=== PATIENT | female | born 1965 | race Caucasian/White ===

== ENCOUNTER 2020-01-07 09:05 | Emergency (ER) | payer BC, SELFPAY ==
--- NOTE | ~2020-01-07 | XR_ITS ---
EXAMINATION: XR elbow LT min 3V DATE: 01/07/2020 09:43 INDICATION: Left elbow swelling TECHNIQUE: Anteroposterior, two oblique and lateral views of the left elbow were obtained. COMPARISON: None. FINDINGS: Alignment is normal. No fracture or joint effusion. Joint spaces are normal. There is diffu se soft tissue swelling of the elbow. IMPRESSION: 1. Diffuse soft tissue swelling of the ankle without underlying osseous abnormality. Reviewed, dictated and finalized at location A. IMPRESSION: 1. Diffuse soft tissue swelling of the ankle without underlying osseous abnorma lity.
[2020-01-07 09:26] VITALS: BP 122/69; PULSE 70; RESP 16; TEMP 37.4; O2SAT 100
--- NOTE | 2020-01-07 09:26 | ED.GENADULT ---
HPI - General Adult General Chief complaint: Extremity Injury, Upper Stated complaint: Swollen right elbow Time Seen by Provider: 01/07/20 09:26 Source: patient Mode of arrival: ambulatory Limitations: no limitations History of Present Illness HPI narrative: 54-year-old female patient presents to the [facility] with complaints of left elbow pain since yesterday. Patient states that she was having some pain with movement yesterday and it was a little swollen but denies any injury to the left elbow. Patient states that she was putting ice on it yesterday however today it is very hot to the touch, swollen and it continues to have pain with movement. Patient states that she did have a colonoscopy on last week and had an IV in her left hand but her symptoms did not appear until yesterday. Denies any fevers, body aches or chills however she does present today with a low-grade fever. Related Data Home Medications Medication Instructions Recorded Confirmed albuterol sulfate INHALATION 01/07/20 carbamazepine mg PO 01/07/20 levothyroxine 01/07/20 mesalamine g PO 01/07/20 Allergies Allergy/AdvReac Type Severity Reaction Status Date / Time No Known Allergies Allergy Unverified 08/08/16 19:35 Review of Systems Review of Systems: Narrative: CONSTITUTIONAL: Denies fever, chills, or sweats. EYES: Denies visual changes, redness, or discharge. ENT: Denies rhinorrhea, congestion, sore throat, or otalgia. CARDIOVASCULAR: Denies chest pain, palpitations, or edema. RESPIRATORY: Denies cough or dyspnea. GASTROINTESTINAL: Denies abdominal pain, nausea, vomiting, or diarrhea. GENITOURINARY: Denies dysuria or hematuria. SKIN: Denies rash or itching. MUSCULOSKELETAL: Denies back pain, joint pain, or myalgia. Positive left elbow pain, redness and swelling since yesterday NEUROLOGIC: Denies headache, numbness, or weakness. PSYCHIATRIC: Denies anxiety or depression. PMFSH Comments At the time of my signature I agree with nursing past medical history, surgical, social, and family history. There is no relevant family history pertinent to the presenting complaint. Exam Narrative: Exam Narrative: GENERAL: Well-appearing, well-nourished, and in no acute distress. HEAD: Normocephalic, atraumatic. EYES: PERRLA and EOMI. ENT: Nares clear, no rhinorrhea or epistaxis. Mucous membranes moist. NECK: Supple. No lymphadenopathy CHEST: Clear to auscultation. No respiratory distress. HEART: Regular rate and rhythm. No murmur heard. Normal peripheral pulses. ABDOMEN: Soft, nontender, nondistended, normal active bowel sounds. EXTREMITIES: The L elbow is without obvious asymmetry or deformity when compared to the R elbow. No obvious surface trauma, ecchymosis. Patient does have significant soft tissue swelling noted to the left elbow that extends assisted down to the left forearm. No involvement of the hand or fingers. There is some erythema present and very hot to the touch. No bony tenderness to palpation of the lateral or medial epicondyle, olecranon, or radial head. No epicondylar or axillary lymphadenopathy. Normal flexion, extension but does have pain with this movement, normal supination, pronation. Normal muscle strength. Intact motor and sensation of ulnar, median, and radial nerves. SKIN: Warm, dry, no rash. NEURO: No focal deficits. Alert and oriented x3. Course Reevaluation(s) Reevaluation #1: Reevaluated patient after x-ray resulted. Discussed with her that her x-ray is negative for any septic joint. Discussed with her we will go ahead and put her on some antibiotics for the cellulitis infection and she can continue taking Tylenol and ibuprofen for pain. Discussed with her she can use heating pad to the area to help with the pain as well. Patient verbalized understanding. Discussed with patient that if she continues to have worsening symptoms such as worsening pain with movement that she would need to go the ER for further evaluation an
== END 2020-01-07 10:22 | disposition home or self-care (01) ==
PROVIDERS: Emergency Provider Nurse Practitioner Family; PCP Student in an Organized Health Care Education/Training Program
DX: L03.114 Cellulitis of left upper limb (principal); E03.9 Hypothyroidism, unspecified
CPT/HCPCS: 73080; 99213; G0463

== ENCOUNTER → 2020-03-20 13:45 | Outpatient (CLI) | payer BC, SELFPAY ==
--- NOTE | ~2020-03-20 | MM_ITS ---
EXAMINATION: MM screening bere BI w sushila HISTORY: Screening mammogram, family history of breast cancer in her mother. TECHNIQUE: Craniocaudal and mediolateral oblique 3-D tomosynthesis images were obtained and synthetic 2-D images were generated. CAD analysis was submitted and interpreted. COMPARISON: 02/01/2019, 01/13/2017, 12/19/2015 BREAST PARENCHYMAL COMPOSITION: The breasts are heterogeneously dense, which may obscure small masses . FINDINGS: There is no evidence of suspicious mass, calcification, or architectural distortion to sugg est malignancy in either breast. There has been no suspicious interval change. IMPRESSION: 1. No mammographic evidence of malignancy. 2. Recommend routine screening mammography in one year. BI-RADS Category 1: Negative Reviewed, dictated and finalized at location A. ICE CLINICAL SUPERVISOR
== END ==
PROVIDERS: PCP Student in an Organized Health Care Education/Training Program
DX: Z12.31 Encounter for screening mammogram for malignant neoplasm of breast (principal)
CPT/HCPCS: 77063; 77067

== ENCOUNTER → 2021-04-28 11:26 | Outpatient (CLI) | payer BC, SELFPAY ==
--- NOTE | ~2021-04-28 | MM_ITS ---
EXAMINATION: MM screening bere BI w sushila HISTORY: Screening TECHNIQUE: Craniocaudal and mediolateral oblique 3-D tomosynthesis images were obtained and synthetic 2-D images were generated. CAD analysis was submitted and interpreted. COMPARISON: Comparison to multiple prior studies sequentially, with oldest reviewed study dated 10/16. BREAST PARENCHYMAL COMPOSITION: The breasts are heterogenously dense, which may obscure small masses. FINDINGS: There is no evidence of suspicious mass, calcification, or architectural distortion to sugg est malignancy in either breast. There has been no suspicious interval change. IMPRESSION: 1. No mammographic evidence of malignancy. 2. Recommend routine screening mammography in one year. BI-RADS Category 1: Negative Reviewed, dictated and finalized at location A. OPERATOR
== END ==
PROVIDERS: PCP Student in an Organized Health Care Education/Training Program; Visit Provider Student in an Organized Health Care Education/Training Program
DX: Z12.31 Encounter for screening mammogram for malignant neoplasm of breast (principal)
CPT/HCPCS: 77063; 77067

== ENCOUNTER → 2021-05-20 11:47 | Outpatient (CLI) | payer BC, SELFPAY ==
--- NOTE | ~2021-05-20 | CT_ITS ---
EXAMINATION: CT sinus wo con DATE: 05/20/2021 12:00 INDICATION: Chronic sinusitis TECHNIQUE: Computed tomography (CT) of the paranasal sinuses was performed without contrast. Iterativ e reconstruction technique was employed. Exam dose: 292.39 mGy-cm total exam DLP. COMPARISON: 04/23/2011 CT sinuses FINDINGS: There is rightward deviation of the lower nasal septum and leftward bowing of the upper por tion of the nasal septum. There is moderate asymmetric soft tissue swelling of the right nasal turbinates. There is bilateral i nterlamellar cell of the middle nasal turbinates. There is soft tissue thickening of the right infundibulum. The ostiomeatal units are otherwise patent . There is mild mucoperiosteal thickening of the medial portion of the septated right maxillary sinus. The paranasal sinuses otherwise normally developed and aerated. Normal development and aeration of the mastoid air cells. IMPRESSION: Leftward deviation of the lower portion of the nasal septum; mild leftward bowing of the upper septum Moderate soft tissue swelling of the right nasal turbinates Bilateral interlamellar cell of middle nasal turbinates Septated right maxillary sinus with mild mucoperiosteal thickening of the medial portion Soft tissue thickening of the right infundibulum Reviewed, dictated and finalized at Location A. Reviewed, dictated and finalized at location A. D ENGINEER IMPRESSION: Leftward deviation of the lower portion of the nasal septum; mild leftward bowing of the upper septum Moderate soft tissue swelling of the right nasal turbinates Bilateral interlamellar cell of middle nasal turbinates Septated right maxillary sinus with mild mucoperiosteal thickening of the media l portion Soft tissue thickening of the right infundibulum
== END ==
PROVIDERS: Visit Provider Otolaryngology
DX: J32.9 Chronic sinusitis, unspecified (principal); J34.2 Deviated nasal septum
CPT/HCPCS: 70486

== ENCOUNTER → 2022-04-30 10:09 | Outpatient (CLI) | payer BC, SELFPAY ==
--- NOTE | ~2022-04-30 | MM_ITS ---
EXAMINATION: MM screening bere BI w sushila HISTORY: Screening mammogram TECHNIQUE: Craniocaudal and mediolateral oblique 3-D tomosynthesis images were obtained and synthetic 2-D images were generated. CAD analysis was submitted and interpreted. COMPARISON: 04/20/2021, 03/20/2020, 02/28/2019 bilateral screening mammogram examinations BREAST PARENCHYMAL COMPOSITION: The breasts are heterogeneously dense, which may obscure small masses .. FINDINGS: There is no evidence of suspicious mass, calcification, or architectural distortion to sugg est malignancy in either breast. There has been no suspicious interval change. IMPRESSION: 1. No mammographic evidence of malignancy. 2. Recommend routine screening mammography in one year. BI-RADS Category 1: Negative Reviewed, dictated and finalized at location A. DATION COORDINATOR
== END ==
PROVIDERS: PCP Student in an Organized Health Care Education/Training Program
DX: Z12.31 Encounter for screening mammogram for malignant neoplasm of breast (principal)
CPT/HCPCS: 77063; 77067

== ENCOUNTER 2022-08-15 09:01 | Emergency (ER) | payer BC, SELFPAY ==
--- NOTE | 2022-08-15 09:08 | ED.URI ---
HPI - URI/Sore Throat General Chief Complaint: Upper Respiratory Infection Stated Complaint: Sinus/Cough Time Seen by Provider: 08/15/22 09:36 Source: patient and RN notes reviewed Mode of arrival: ambulatory Limitations: no limitations History of Present Illness HPI Narrative: 48-year-old female with history of COPD presents with concern for 1.5 week history of cough, chest congestion, sinus congestion and drainage. Reports she last used her albuterol nebulizer this morning without relief. She is out of her albuterol inhaler. Which she has been using Sudafed. MD elicited complaint: cough Related Data Home Medications Medication Instructions Recorded Confirmed albuterol sulfate 90 mcg/actuation inhalation 01/07/20 07/07/21 aerosol inhaler carbamazepine 200 mg 400 mg PO HS 08/15/22 08/15/22 capsule,extended release [id number] Allergies Allergy/AdvReac Type Severity Reaction Status Date / Time No Known Allergies Allergy Verified 08/15/22 09:22 Review of Systems Review of Systems: CONSTITUTIONAL: Reports malaise. Denies chills, sweats, or fever. EYES: Denies visual changes, redness, or discharge. ENT: Reports rhinorrhea, congestion, sinus pain. Denies otalgia and sore throat. CARDIOVASCULAR: Denies chest pain, palpitations, or edema. RESPIRATORY: Reports cough, situational dyspnea. GASTROINTESTINAL: Denies abdominal pain, nausea, vomiting, diarrhea SKIN: Denies rash or itching. MUSCULOSKELETAL: Denies myalgia. NEUROLOGIC: Denies headache. All systems reviewed & are unremarkable except as noted in HPI and below PMFSH Past Medical History Medical History Cancer Seizure Social History Social History (Updated 06/16/22 @ 09:59 by Zahida Martinez MA) Smoking packs per day: 1 Smoking cigarettes per day: 20.0 Years smoked: 20 Smoking pack-years: 20.00 Smoking status: Current every day smoker Tobacco type: cigarettes Alcohol intake: current Alcohol use details: Socially Substance use: never Lack of Transportation: No Lack of Food: Never True Current Housing: I Have Housing Concerned About Future Housing: No Difficulty Paying Gas/Electric Bills: No Difficulty Paying for Meds: No Currently Unemployed: No Education: High School Diploma/GED Difficulty w/ Childcare or Family Care: No Living arrangements: with family Additional living arrangements comments: -Nando Occupation/Education: retired Additional occupation/education comments: [employer] Gender identity (if verbalized by the patient): Female Sexual Orientation (if Verbalized by the Patient): Straight or Heterosexual Spiritual care concerns: No Comments At time of signature, agree with nursing past medical, surgical, social and family history. There is no relevant family history pertinent to the presenting complaint Exam Narrative: GENERAL: Nontoxic-appearing and in no acute distress. HEAD: Normocephalic EYES: PERRLA, conjunctivae clear ENT: Nares clear, turbinates edematous and erythematous. Mucous membranes moist. TM pearly ellsworth with dull light reflex bilaterally; no tragal tenderness. Oropharynx not erythematous without lesions. Tonsils not enlarged and without exudate, no drooling, no hoarseness, no trismus, uvula midline. NECK: Supple. No lymphadenopathy CHEST: Aeration poor, scattered wheeze, tight, breath sounds equal. No rhonchi, rales, or stridor. No respiratory distress, speaks in full sentences. HEART: Regular rate and rhythm. No murmur heard. SKIN: Warm, dry, no rash. NEURO: Alert and oriented x3. PSYCH: Normal mood and affect Course Course Emergency Course: Patient is aware of diagnosis, understands and agrees to treatment plan. Anticipatory guidance given. Patient agrees to follow-up as directed and is aware of reasons to seek care at the emergency department. Portions of this record may have been cre
[2022-08-15 09:28] VITALS: BP 148/72; PULSE 97; RESP 20; TEMP 37.1; O2SAT 95
[2022-08-15] MEDS: IPRATROPIUM BR 0.02% INH SOLN 0.5 MG/2.5 ML VIAL INHALATION (09:50)
[2022-08-15] MEDS: ALBUTEROL SULFATE NEB 2.5 MG/3 ML INH INHALATION (09:50)
[2022-08-15 09:56] VITALS: O2SAT 95
[2022-08-15 10:30] VITALS: PULSE 67; RESP 22; O2SAT 97
== END 2022-08-15 10:30 | disposition home or self-care (01) ==
PROVIDERS: Emergency Provider Nurse Practitioner; PCP Student in an Organized Health Care Education/Training Program
DX: J44.1 Chronic obstructive pulmonary disease with (acute) exacerbation (principal); F17.210 Nicotine dependence, cigarettes, uncomplicated; G40.909 Epilepsy, unspecified, not intractable, without status epilepticus; Z85.9 Personal history of malignant neoplasm, unspecified
CPT/HCPCS: 99213; G0463

== ENCOUNTER → 2023-05-10 10:26 | Outpatient (CLI) | payer BC, SELFPAY ==
--- NOTE | ~2023-05-10 | MM_ITS ---
EXAMINATION: MM screening [facility] BI w sushila HISTORY: Screening mammogram TECHNIQUE: Craniocaudal and mediolateral oblique 3-D tomosynthesis images were obtained and synthetic 2-D images were generated. CAD analysis was submitted and interpreted. COMPARISON: 04/30/2022, 04/28/2021, 03/20/2020 BREAST PARENCHYMAL COMPOSITION: The breasts are heterogeneously dense, which may obscure small masses . FINDINGS: No suspicious mass, calcification, or architectural distortion are identified in either kae ast to suggest malignancy. There has been no suspicious interval change. IMPRESSION: 1. No mammographic evidence of malignancy. 2. Recommend routine screening mammography in one year. BI-RADS Category 1: Negative Reviewed, dictated and finalized at location A. OADER OPERATOR
== END ==
DX: Z12.31 Encounter for screening mammogram for malignant neoplasm of breast (principal)
CPT/HCPCS: 77063; 77067

== ENCOUNTER 2023-05-24 10:05 | Emergency (ER) | payer BC, SELFPAY ==
--- NOTE | ~2023-05-24 | XR_ITS ---
EXAMINATION: XR chest 2V 05/24/2023 11:31 INDICATION: Cold. Dyspnea. PROCEDURE: 2 view chest COMPARISON: 06/09/2013 FINDINGS: The lungs are clear. The cardiomediastinal silhouette is within normal limits. There are no pleural effusions. There is no pneumothorax suspected. IMPRESSION: 1: NO ACUTE CARDIOPULMONARY DISEASE. Reviewed, dictated and finalized at location L. ATOLOGY TEACHER
--- NOTE | 2023-05-24 10:06 | ED.URI ---
HPI - URI/Sore Throat General Chief Complaint: Upper Respiratory Infection Stated Complaint: chest/nasal congestion Time Seen by Provider: 05/24/23 10:05 Source: patient Mode of arrival: ambulatory Limitations: no limitations History of Present Illness HPI Narrative: Carmelita is a 57-year-old female patient presenting to the clinic today with complaints of cough, chest, and nasal congestion times 2-3 weeks. She reports that she has had clear nasal drainage. She denies any shortness of breath but does have a productive cough with clear phlegm. No history of COPD or asthma. MD elicited complaint: cough (Chest congestion) and nasal congestion Related Data Allergies Allergy/AdvReac Type Severity Reaction Status Date / Time No Known Allergies Allergy Verified 02/22/23 10:10 Review of Systems Review of Systems: Pertinent positives per HPI. Patient denies any fever, chills, rash, headache, visual changes, dizziness,shortness of breath, chest pain, palpitations, nausea, vomiting, diarrhea, constipation, abdominal pain, or any urinary issues. PMFSH Past Medical History Medical History Cancer Seizure Social History Social History Smoking packs per day: 1 Smoking cigarettes per day: 20.0 Smoking status: Current every day smoker Tobacco type: cigarettes Alcohol intake: current Alcohol use details: Socially Substance use: never Lack of Transportation: No Lack of Food: Never True Current Housing: I Have Housing Concerned About Future Housing: No Difficulty Paying Gas/Electric Bills: No Difficulty Paying for Meds: No Currently Unemployed: No Education: High School Diploma/GED Difficulty w/ Childcare or Family Care: No Living arrangements: with family Additional living arrangements comments: -Nando Occupation/Education: retired Additional occupation/education comments: [employer] Gender identity (if verbalized by the patient): Female Sexual Orientation (if Verbalized by the Patient): Straight or Heterosexual Spiritual care concerns: No Comments At the time of my signature, I reviewed and agree with the nursing past medical, surgical, social, and family history. There is no relevant family history pertinent to the patient complaint. Exam Narrative: General: Well-developed, well nourished, in no apparent distress Head: Normocephalic, atraumatic Eyes: Pupils equally round and reactive to light bilaterally, EOM intact, sclera and conjunctive clear, no discharge, lids normal Ears: TMs intact and clear, ear canals clear, no drainage, grossly hearing normal. Nose: Nares patent, no discharge, no inflammation, no sinus tenderness. Mouth: Oral pharynx without lesions or masses, good dentition, MMM. Neck: Supple, trachea midline, no enlargement of anterior or posterior cervical nodes, no thyroid masses or goiter palpable. Cardio: Regular rate and rhythm, s1 and s2 normal, no murmur appreciated. Resp: Crackles heard over the right lower lobe posteriorly, faint expiratory wheeze, no rhonchi, or rubs Course Course Emergency Course: Portions of this record may have been created with voice recognition software. Level of Care: Express Care Visit Vital Signs Vital signs: Vital Signs Temperature 36.8 C 05/24/23 10:49 Pulse Rate 55 L 05/24/23 10:49 Respiratory Rate 16 05/24/23 10:49 Blood Pressure 152/74 H 05/24/23 10:49 Pulse Oximetry 98 05/24/23 10:49 Oxygen Delivery Room Air 05/24/23 10:49 Temperature 36.8 C 05/24/23 10:49 Pulse Rate 55 L 05/24/23 10:49 Respiratory Rate 16 05/24/23 10:49 Blood Pressure 152/74 H 05/24/23 10:49 Pulse Oximetry 98 05/24/23 10:49 Oxygen Delivery Room Air 05/24/23 10:49 Vital signs reviewed MDM - URI/Sore Throat MDM Narrative Medical decision making narrative:
[2023-05-24 10:49] VITALS: BP 152/74; PULSE 55; RESP 16; TEMP 36.8; O2SAT 98
== END 2023-05-24 11:52 | disposition home or self-care (01) ==
PROVIDERS: Emergency Provider Nurse Practitioner Family; PCP Student in an Organized Health Care Education/Training Program
DX: J40 Bronchitis, not specified as acute or chronic (principal); F17.210 Nicotine dependence, cigarettes, uncomplicated; G40.909 Epilepsy, unspecified, not intractable, without status epilepticus; Z85.9 Personal history of malignant neoplasm, unspecified
CPT/HCPCS: 71046; 99213; G0463

== ENCOUNTER 2023-06-19 10:04 | Emergency (ER) | payer BC, SELFPAY ==
[2023-06-19 10:22] VITALS: BP 163/91; PULSE 72; RESP 18; TEMP 36.8; O2SAT 96
--- NOTE | 2023-06-19 10:23 | ECG_ITS ---
Measurements Intervals [place] Rate: 67 P: 61 AR: 169 QRS: -27 QRSD: 96 T: 58 QT: 403 QTc: 426 Interpretive Statements SINUS RHYTHM BORDERLINE LEFT AXIS DEVIATION [QRS AXIS < -20] INCOMPLETE RIGHT BUNDLE BRANCH BLOCK [90+ ms QRS DURATION, TERMINAL R IN V1/V2, 40+ ms S IN I/aVL/V4/V5/V6] ABNORMAL ECG NO PREVIOUS ECG AVAILABLE FOR COMPARISON Electronically Signed On 06-19-2023 14:13:17 INSIDE SALES PROFESSIONAL by Willie Fragoso M.D.
--- NOTE | 2023-06-19 10:30 | ED.EXTPRO ---
HPI - Extremity Problem General Chief complaint: Extremity Problem,Nontraumatic Stated complaint: Left Shoulder/Arm Pain Time Seen by Provider: 06/19/23 10:46 Source: patient and RN notes reviewed Mode of arrival: ambulatory Limitations: no limitations History of Present Illness HPI Narrative: 57-year-old female presents concern for left shoulder pain for 3-4 days. She reports pain worsens when she lifts her arm above shoulder height or reaches behind her back. She reports ibuprofen and Biofreeze help. She denies any obvious injury or trauma. Reports pain worsen after she cleaned her house. She denies chest pain or shortness of breath. She denies bruising, swelling, redness, warmth. Reports tenderness MD Complaint: extremity pain Related Data Allergies Allergy/AdvReac Type Severity Reaction Status Date / Time No Known Allergies Allergy Verified 06/19/23 10:16 Review of Systems Review of Systems: CONSTITUTIONAL: Denies malaise, chills, sweats, or fever. CARDIOVASCULAR: Denies chest pain, palpitations, or edema. RESPIRATORY: Denies cough or dyspnea. SKIN: Denies rash or itching, bruising, redness, swelling. MUSCULOSKELETAL: Reports left shoulder pain NEUROLOGIC: Denies numbness, weakness All systems reviewed & are unremarkable except as noted in HPI and below PMFSH Past Medical History Medical History Cancer Seizure Social History Social History Smoking packs per day: 1 Smoking cigarettes per day: 20.0 Smoking status: Current every day smoker Tobacco type: cigarettes Alcohol intake: current Alcohol use details: Socially Substance use: never Substance use type: does not use Do You Feel Safe in your Home?: Yes Lack of Transportation: No Lack of Food: Never True Current Housing: I Have Housing Concerned About Future Housing: No Difficulty Paying Gas/Electric Bills: No Difficulty Paying for Meds: No Currently Unemployed: No Education: High School Diploma/GED Difficulty w/ Childcare or Family Care: No Living arrangements: with family Additional living arrangements comments: -Nando Occupation/Education: retired Additional occupation/education comments: [employer] Gender identity (if verbalized by the patient): Female Sexual Orientation (if Verbalized by the Patient): Straight or Heterosexual Spiritual care concerns: No Comments At time of signature, agree with nursing past medical, surgical, social and family history. There is no relevant family history pertinent to the presenting complaint Exam Narrative: GENERAL: Well-appearing, well-nourished, and in no acute distress. HEAD: Normocephalic, atraumatic. EYES: PERRLA, conjunctivae clear NECK: Supple. CHEST: Speaks in full sentences. No respiratory distress. HEART: Regular rate and rhythm. Normal and equal peripheral pulses. EXTREMITIES: Left upper extremity has normal strength and sensation, grossly normal range of motion. No edema or ecchymosis. 4/5 strength with left shoulder abduction. Normal sensation with sensitivity to light touch and pain. Shoulder joint tenderness. No open wounds, no skin tenting, no devitalized tissue or atrophy, no trophic changes, no obvious deformity, alignment normal, nearby joints and structures intact. Distal pulses palpable and equal bilaterally, skin warm, dry, pink. Capillary refill less than 3 seconds. SKIN: Warm, dry, no rash. NEURO: Alert and oriented x3. PSYCH: Normal mood and affect Course Course Emergency Course: EKG shows right bundle branch block, no concern for STEMI. Patient's symptoms are consistent with musculoskeletal etiology, given tenderness, worsening pain with range of motion. Patient will be given Cardiology referral for evaluation of the right bundle-branch block and sore throat for oral for evaluation of her shoulder
== END 2023-06-19 11:00 | disposition home or self-care (01) ==
PROVIDERS: Emergency Provider Nurse Practitioner; PCP Student in an Organized Health Care Education/Training Program
DX: M25.512 Pain in left shoulder (principal); I45.10 Unspecified right bundle-branch block; F17.210 Nicotine dependence, cigarettes, uncomplicated; G40.909 Epilepsy, unspecified, not intractable, without status epilepticus; Z85.9 Personal history of malignant neoplasm, unspecified
CPT/HCPCS: 93005; 99213; G0463

== ENCOUNTER 2023-10-21 10:14 | Emergency (ER) | payer BC, SELFPAY ==
--- NOTE | ~2023-10-21 | XR_ITS ---
EXAMINATION: XR chest 2V DATE: 10/21/2023 11:03 INDICATION: Cough. COVID-19 positive. TECHNIQUE: Frontal and lateral views of the chest were obtained. COMPARISON: Chest 2 views 05/24/2023 FINDINGS: There is no pneumonia, pleural effusion, or pneumothorax. The heart size is normal. IMPRESSION: 1. No acute cardiopulmonary disease. Reviewed, dictated and finalized at location A.
--- NOTE | 2023-10-21 10:25 | ED.URI ---
HPI - URI/Sore Throat General Chief Complaint: Upper Respiratory Infection Stated Complaint: Congestion and Cough Time Seen by Provider: 10/21/23 10:36 Source: patient and RN notes reviewed Mode of arrival: ambulatory Limitations: no limitations History of Present Illness HPI Narrative: 57-year-old female presents with concern for cough for 7 days. She reports sinus congestion, drainage, fatigue. Reports her cough is productive. She reports exposure to COVID. She denies fever, body aches, chills, sweats MD elicited complaint: cough Related Data Home Medications Medication Instructions Recorded Confirmed fluticasone propionate 50 2 spray intranasal DAILY 10/21/23 10/21/23 mcg/actuation nasal spray,suspension montelukast 10 mg tablet 10 mg PO DAILY 10/21/23 10/21/23 Allergies Allergy/AdvReac Type Severity Reaction Status Date / Time No Known Allergies Allergy Verified 10/21/23 10:23 Review of Systems Review of Systems: CONSTITUTIONAL: Denies malaise, chills, sweats, or fever. EYES: Denies visual changes, redness, or discharge. ENT: Reports rhinorrhea, congestion, sinus pain CARDIOVASCULAR: Denies chest pain, palpitations, or edema. RESPIRATORY: Reports productive cough, chest congestion. Denies dyspnea. GASTROINTESTINAL: Denies abdominal pain, nausea, vomiting, diarrhea SKIN: Denies rash or itching. MUSCULOSKELETAL: Denies myalgia. NEUROLOGIC: Reports headache. All systems reviewed & are unremarkable except as noted in HPI and below PMFSH Past Medical History Medical History Cancer Seizure Social History Social History Smoking packs per day: 1 Smoking cigarettes per day: 20.0 Smoking status: Current every day smoker Tobacco type: cigarettes Alcohol intake: current Alcohol use details: Socially Substance use: never Substance use type: does not use Do You Feel Safe in your Home?: Yes Lack of Transportation: No Lack of Food: Never True Current Housing: I Have Housing Concerned About Future Housing: No Difficulty Paying Gas/Electric Bills: No Difficulty Paying for Meds: No Currently Unemployed: No Education: High School Diploma/GED Difficulty w/ Childcare or Family Care: No Living arrangements: with family Additional living arrangements comments: -Nando Occupation/Education: retired Additional occupation/education comments: [employer] Gender identity (if verbalized by the patient): Female Sexual Orientation (if Verbalized by the Patient): Straight or Heterosexual Spiritual care concerns: No Comments At time of signature, agree with nursing past medical, surgical, social and family history. There is no relevant family history pertinent to the presenting complaint Exam Narrative: GENERAL: Well-appearing, well-nourished, and in no acute distress. HEAD: Normocephalic EYES: PERRLA, conjunctivae clear ENT: Nares clear. Mucous membranes moist. TM pearly ellsworth with dull light reflex bilaterally; no tragal tenderness. Oropharynx not erythematous without lesions. Tonsils not enlarged and without exudate, no drooling, no hoarseness, no trismus, uvula midline. NECK: Supple. No lymphadenopathy CHEST: Clear to auscultation, breath sounds equal. No wheezing, rhonchi, rales, or stridor. No respiratory distress, speaks in full sentences. HEART: Regular rate and rhythm. No murmur heard. SKIN: Warm, dry, no rash. NEURO: Alert and oriented x3. PSYCH: Normal mood and affect Course Course Emergency Course: Patient is aware of diagnosis, understands and agrees to treatment plan. Anticipatory guidance given. Patient agrees to follow-up as directed and is aware of reasons to seek care at the emergency department. Portions of this record may have been created with voice recognition software Level of Care: Express Care Vi
[2023-10-21 10:28] VITALS: BP 119/79; PULSE 76; RESP 20; TEMP 36.6; O2SAT 96
== END 2023-10-21 11:16 | disposition home or self-care (01) ==
PROVIDERS: Emergency Provider Nurse Practitioner; PCP Student in an Organized Health Care Education/Training Program
DX: J32.9 Chronic sinusitis, unspecified (principal); U07.1 COVID-19; F17.210 Nicotine dependence, cigarettes, uncomplicated; G40.909 Epilepsy, unspecified, not intractable, without status epilepticus; Z85.9 Personal history of malignant neoplasm, unspecified
CPT/HCPCS: 71046; 87426; 87804; 99213; G0463

== ENCOUNTER 2024-01-19 11:15 | Outpatient (CLI) | payer BC, SELFPAY ==
--- NOTE | ~2024-01-19 | CT_ITS ---
EXAMINATION:CT lung screening DATE: 01/19/2024 11:40 INDICATION: Personal history of nicotine dependence. Current smoker with 45 pack year history. TECHNIQUE: Computed tomography (CT) of the chest was performed without intravenous contrast. Automate d exposure control and iterative reconstruction technique were employed. The dose-length product (DLP ) was 314.75 mGy-cm. COMPARISON: None. FINDINGS: There is mild emphysema. There is a 3 mm nodule at minor fissure. There is mild atelectasis in left upper lobe. No pleural effusion. The heart size is normal. There is subendocardial fat in th e apical septal wall of left ventricle of the heart, consistent with old infarct. No pericardial effu kristen. There is a 3.9 cm cyst in the liver. There is mild chronic anterior wedging of multiple thoraci c vertebral bodies. There is severe thoracic spondylosis. IMPRESSION: 1. Lung-RADS category 2: Benign appearance or behavior. Continue annual screening with noncontrast lo w-dose chest CT in 12 months. Reviewed, dictated and finalized at location A. IMPRESSION: 1. Lung-RADS category 2: Benign appearance or behavior. Continue annual screeni ng with noncontrast low-dose chest CT in 12 months.
== END 2024-01-19 11:16 | disposition home or self-care (01) ==
LOC: MICIMG 11:16
PROVIDERS: PCP Physician Assistant; Visit Provider Physician Assistant
DX: Z12.2 Encounter for screening for malignant neoplasm of respiratory organs (principal); Z87.891 Personal history of nicotine dependence
CPT/HCPCS: 71271

== ENCOUNTER 2024-04-11 08:44 | Outpatient (CLI) | payer BC, SELFPAY ==
--- NOTE | 2024-04-11 09:03 | ECHO_ITS ---
Patient Info Name: Carmelita Zaidi Age: 58 years : 1965 Gender: Female Ht: 66 in Wt: 240 lbs BSA: 2.30 m2 HR: 56 bpm BP: 156 / 105 mmHg Technical Quality: Fair Exam Date: 04/11/2024 9:08 AM Exam Location: Echo Lab Patient Status: Outpatient Admit Date: 04/11/2024 Staff Ordering Physician: Cruz Younger DO Acquisition Analyst: Chelle Hernandez RDCS Attending Provider: Cruz Younger DO Referring Physician: Aren DREW; Exam Type: CA echo doppler color flow Study Info Indications - other forms of dyspnea Complete two-dimensional, color flow and Doppler transthoracic echocardiogram is performed. Summary 1. Complete two-dimensional, color flow and Doppler transthoracic echocardiogram is performed. 2. Left ventricular chamber dimension is normal. 3. Left ventricular systolic function is normal, estimated at 60-65%. 4. The left ventricular diastolic function is grade I diastolic dysfunction. 5. E/e' 7 is not elevated. 6. Left atrial chamber dimension is mildly enlarged. 7. Right atrial chamber dimension is mildly enlarged. Left Ventricle E/e' 7 is not elevated. Left ventricular chamber dimension is normal. Left ventricular systolic function is normal, estimated at 60-65%. The left ventricular diastolic function is grade I diastolic dysfunction. Right Ventricle Right ventricular systolic function is normal and with normal TAPSE 2.4 cm. Right ventricular chamber dimension is normal. Left Atria Left atrial chamber dimension is mildly enlarged. Right Atria Right atrial chamber dimension is mildly enlarged. Aortic Valve The aortic valve is trileaflet. There is no aortic valve stenosis. There is no aortic valve regurgitation. Pulmonic Valve There is no pulmonic regurgitation. Mitral Valve There is no mitral valve stenosis. There is no mitral valve regurgitation. Tricuspid Valve There is no tricuspid valve regurgitation. Pericardium/Pleural There is no pericardial effusion. Inferior Vena Cava Normal inferior vena cava with >50% collapse upon inspiration consistent with normal right atrial pressure, 5 mmHg. Aorta The aortic root size at the sinus of Valsalva is normal. Left Ventricular Outflow Tract Name Value Normal LVOT 2D LVOT Diameter 2.2 cm LVOT Doppler LVOT Peak Gradient 4 mmHg LVOT Mean Gradient 2 mmHg LVOT VTI 27 cm LVOT VTI/AV VTI Ratio 0.7 LVOT Stroke Volume 104 ml LVOT CO 5.5 l/min LVOT CI 2.4 l/min/m2 Pulmonic Valve Name Value Normal RVOT Doppler RVOT Peak Gradient 2 mmHg PV Doppler PV Peak Gradient 3 mmHg Mitral Valve Name Value Normal MV Doppler MV Peak Gradient 3 mmHg MV Mean Gradient 1 mmHg MV Decel [place] 190 cm/s2 MV PHT 89 ms MV Area (PHT) 2.5 cm2 4.0-5.0 MV Area (Cont Eq VTI) 3.2 cm2 MV Diastolic Function MV E Peak Velocity 58 cm/s MV A Peak Velocity 87 cm/s MV E/A 0.7 MV Decel Time 307 ms MV Annular TDI MV E/e' (Septal) 8.1 <=8.0 MV E/e' (Lateral) 6.9 <=8.0 MV E/e' (Average) 7.5 Tricuspid Valve Name Value Normal Estimated PAP/RSVP RA Pressure 5 mmHg <=5 Aorta Name Value Normal Ascending Aorta Ao Root Diameter (MM) 3.1 cm Ao Root Diam Index (MM) 1.3 cm/m2 Aortic Valve Name Value Normal AV Doppler AV Peak Velocity 144 cm/s AV Peak Gradient 8 mmHg AV Mean Gradient 5 mmHg AV VTI 37 cm AV Area (Cont Eq VTI) 2.8 cm2 >=3.0 AV Area (Cont Eq Mcihel) 2.7 cm2 AV Regurgitation 2D LVOT Area 3.8 cm2 Ventricles Name Value Normal LV Dimensions 2D/MM IVS Diastolic Thickness (2D) 1.0 cm 0.6-1.0 LVID Diastole (2D) 4.6 cm 3.8-5.2 LVIW Diastolic Thickness (2D) 1.1 cm 0.6-0.9 LVID Systole (2D) 3.4 cm 2.2-3.5 LVOT Diameter 2.2 cm LV Mass (2D Cubed) 166.22 g 67.00-162.00 LV Mass Index (2D Cubed) 72 g/m2 43-95 Relative Wall Thickness (2D) 0.45 LV Fractional Shortening/Ejection Fraction 2D/MM LV Fractional Shortening (2D) 28 % 27-45 LV EF (2D Teicholz) 54 % 54-74 LV Diastolic Volume (4C MOD) 123 ml LV EF (4C MOD) 61 % LV Diastolic Volume (2C MOD) 108 ml LV EF (2C MOD) 58 % LV Diastolic Volume (BP MOD) 116 ml 46-106 LV Diastolic Volume Index (BP MOD) 51 ml/m2 29-61 LV Systolic Volume (BP MOD) 47 ml 14-42 LV Systolic Volume Index (BP MOD) 20 ml/m2 8-24 LV EF (BP MOD) 60 % 54-74 LV Diastolic Length (4C) 9.0 cm LV Systolic Length (4C) 7.8 cm LV Stroke Volume (4C MOD) 74 ml Atria Name Value Normal LA Dimensions LA Dimension (MM) 3.6 cm 2.7-3.8 LA Volume (4C A-L) 46 ml LA Volume (BP A-L) 63 ml RA Dimensions RA Area (4C) 22.0 cm2 <=18.0 Report Signatures
== END 2024-04-11 08:45 | disposition home or self-care (01) ==
LOC: ANHCARD 08:45
PROVIDERS: PCP Physician Assistant; Visit Provider Internal Medicine Cardiovascular Disease
DX: R06.09 Other forms of dyspnea (principal)
CPT/HCPCS: 93306

== ENCOUNTER 2024-06-29 11:21 | Outpatient (CLI) | payer BC, SELFPAY | END 2024-06-29 11:22 | disposition home or self-care (01) | LOC: MICIMG 11:22 | PROVIDERS: PCP Physician Assistant; Visit Provider Physician Assistant | DX: Z12.31 Encounter for screening mammogram for malignant neoplasm of breast (principal) | CPT/HCPCS: 77063; 77067 ==

== ENCOUNTER 2024-07-06 10:30 | Outpatient (CLI) | payer BC, SELFPAY ==
--- NOTE | ~2024-07-06 | XR_ITS ---
XR hip LT min 2V Ordering provider: Lula Reyes, SANIA History: . L hip pain . Comparison: None. FINDINGS: BONES: No acute fracture or dislocation. HIP JOINT SPACES: Mild to moderate osteoarthritic changes. SACROILIAC JOINT SPACES/LUMBAR SPINE: The sacroiliac joint spaces are normal. Mild degenerative rosales es of the visualized lower lumbar spine. PUBIC SYMPHYSIS: Normal. SOFT TISSUES: Normal. IMPRESSION: No acute osseous abnormality pelvis and left hip. Reviewed, dictated and finalized at location A. [employer]
== END 2024-07-06 10:31 | disposition home or self-care (01) ==
LOC: MICIMG 10:30
PROVIDERS: PCP Physician Assistant; Visit Provider Physician Assistant
DX: M25.552 Pain in left hip (principal)
CPT/HCPCS: 73502

== ENCOUNTER 2025-01-24 08:11 | Outpatient (CLI) | payer BC, SELFPAY ==
--- NOTE | ~2025-01-24 | CT_ITS ---
EXAMINATION: CT lung screening DATE: 01/24/2025 08:31 INDICATION: Nicotine dependence TECHNIQUE: Computed tomography (CT) of the chest was performed without intravenous contrast. The dose-length product was 420.82 mGy-cm. Automated exposure control and iterative reconstruction technique were employed. COMPARISON: CT dated 01/19/2024 FINDINGS: There is a liver cyst measuring 4.7 cm. No significant pleural or pericardial effusion. Heart size normal. No thoracic lymphadenopathy. Mild atherosclerosis. 2 mm minor fissure nodule unchanged. No endobronchial lesions. No focal airspace consolidation. There are groundglass opacities in the left upper lobe which are nonspecific. There is left upper lobe atelectasis/scarring unchanged. No endobronchial lesions. IMPRESSION: 1. Lung-RADS category 2: Benign appearance or behavior. Continue annual screening with noncontrast low-dose chest CT in 12 months. Reviewed, dictated and finalized at location O. IMPRESSION: 1. Lung-RADS category 2: Benign appearance or behavior. Continue annual screeni ng with noncontrast low-dose chest CT in 12 months.
== END 2025-01-24 08:12 | disposition home or self-care (01) ==
LOC: MICIMG 08:11
PROVIDERS: PCP Physician Assistant; Visit Provider Physician Assistant
DX: Z12.2 Encounter for screening for malignant neoplasm of respiratory organs (principal); Z87.891 Personal history of nicotine dependence
CPT/HCPCS: 71271

== ENCOUNTER 2025-02-01 13:30 | Outpatient (CLI) | payer BC, SELFPAY ==
--- OUTSIDE RECORDS SUMMARY | 2025-02-01 13:34 | XMS_ITS | Patient Health Record ---
Author Organization [facility] Address [address] [place], [place] [id number] Care Team Providers Care Wood Science Professor Name Role Phone RAISA Hamlin Unavailable [phone] Tamy Turner Unavailable Unavailable Reason For Referral No Information Medications Medication SIG (Take, Route, Frequency, Duration) Notes Start Date End Date Status ciclopirox 80 MG/ML Topical Solution ciclopirox 80 MG/ML Topical SolutionOriginal Medicationciclopirox 80 MG/ML Topical Solution *Reorder from [employer] for eRx and Interaction Alerts* 08/31/2016 Active Plan Of Treatment No Information Insurance Providers Payer Name Payer Address Payer Phone Subscriber Number Group Number Insured Name Patient Relationship to Insured Coverage Start Date Coverage End Date [facility] ([facility]) ATTN CLAIMS [address] [place] [address] [id number] CATRINA AJ Self - patient is the insured
--- OUTSIDE RECORDS SUMMARY | 2025-02-01 13:34 | XMS_ITS | Clinical Summary ---
Author Organization [facility] Address Formerly [facility] [place] [address] Care Team Providers Care Business Integration Analyst Name Role Phone Toy Knox Primary Care Provider + Allergies No known active allergies Medications levothyroxine (SYNTHROID) 175 MCG tablet Take 1 tablet (175 mcg total) by mouth every morning. 1 Active clobetasol (TEMOVATE) 0.05 % Cream Apply 1 Tube topically 2 (two) times daily. Active umeclidinium-vi lanterol (ANORO ELLIPTA) 62.5-25 MCG/ACT inhalerIndicati ons:Chronic obstructive pulmonary disease, unspecified COPD type ([facility]) Inhale 1 puff into the lungs daily. 60 each 2 3 Active carBAMazepine ER (CARBATROL) 200 MG 12 hr capsuleIndicati ons:Seizure disorder ([facility]) Take 1 capsule (200 mg total) by mouth 2 (two) times a day. 180 capsule 1 3 Active albuterol (PROVENTIL) (2.5 MG/3ML) 0.083% nebulizer solutionIndicat ions:URI (upper respiratory infection) Take 3 mLs (2.5 mg total) by nebulization every 6 (six) hours as needed for Wheezing. 360 mL 3 Active albuterol sulfate HFA 108 (90 Base) MCG/ACT inhalerIndicati ons:Acute non-recurrent frontal sinusitis INHALE TWO (2) PUFFS BY MOUTH UP TO EVERY 4 OR 6 HOURS NEEDED FOR SHORTNESS OF BREATH 18 g Active Active Problems Problem Noted Date Diagnosed Date Obesity 08/31/2022 Exercise hypoxemia 05/19/2021 Seizure disorder ([facility]) 04/03/2021 Class 2 obesity due to exces s calories without serious comorbidity with body mass index (BMI) of 39.0 to 39.9 in adult 04/03/2021 Dyspnea on exertion 04/02/2021 Onychomycosis 02/20/2021 Other psoriasis 02/20/2021 Allergic contact dermatitis due to metals 2020 Hyperglycemia 03/25/2020 Vitamin D deficiency 09/04/2018 Hypothyroidism 06/28/2018 Resolved Problems Problem Noted Date Diagnosed Date Resolved Date Acute exacerbation of chroni c obstructive pulmonary disease ([facility]) 08/31/2022 05/0 06/2022 Irritable bowel syndrome, unspecified type 03/25/2020 05/06/2021 Urge incontinence 12/13/2014 05/06/2021 Immunizations Immunization Administration Dates Next Due Fluzone 6 Months+ Quad (0.5 mL Prefilled Syringe ) 02/24/2022 PFIZER COVID-19 (ORIGINAL FO RMULATION, PURPLE CAP) mRNA, LNP-S, PF, 30 MCG/0.3 ML DOSE 02/27/2021 Tdap (Adacel) 02/23/2021 Family History Medical History Relation Comments Cancer Maternal Aunt breast Cancer Mother breast, pituitar y Heart Disease Mother Relation Status Comments Father Maternal Aunt Mother Social History Tobacco Use Types Packs/Day Years Used Date Smoking Tobacco: Every Day Cigarettes 1 20 Smokeless Tobacco: Never Tobacco Cessation:Ready to Q uit: No; Counseling Given: Yes Comments:provider to career and guidance counselor Alcohol Use Standard Drinks/Week Comments Yes 0 (1 standard drink = 0.6 oz pur e alcohol) Social PHQ-2 Answer Date Recorded Patient Health Questionnaire-2 Score 0 08/31/2022 Comments No Sex and Gender Information Value Date Recorded Sex Assigned at Not on file Legal Sex Female 8:06 AM NEW GRAD RN Gender Identity Not on file Sexual Orientation Not on file Occupation Industry Job Start Date Job End Date Retired [employer] Not on file Not on file Not on file Last Filed Vital Signs Vital Sign Reading Time Taken Comments Blood Pressure 142/85 08/31/2022 12:54 PM CDT Pulse 66 08/31/2022 12:54 PM CDT Temperature 36.6 C (97.8 F) 08/31/2022 12:54 PM CDT Respiratory Rate 16 06/17/2022 9:50 AM NEW GRAD RN Oxygen Saturation 96% 08/31/2022 12: 54 PM CDT Inhaled Oxygen Concentration - - Weight 113.3 kg (249 lb 12.8 oz) 2022 12:54 PM CDT Height 169.5 cm (5' 6.75) 08/31/2022 1 2:54 PM CDT Body Mass Index 39.42 08/31/2022 12:54 PM CDT Plan of Treatment Health Maintenance Due Date Last Done Comments Cervical Cancer Screening Pap Smear (Age 30 to 64) Every 3 Years 1965 Pneumococcal Vaccine: 50+ Years (1 of 2 - PCV) 10/27/1982 Cervical Cancer Screening Pap with HPV Testing (Age 30 to 64) Every 5 Years 10/27/1993 Cervical Cancer Screening with HPV 10/27/1993 Annual Physical 02/23/2022 02/23/2021, 0905/2019, 12/07/2018 Mammogram Screening 04/30/2024 04/30/2022, 04/28/2021, 03/20/2020, Additional history exists PHQ-2 (Physician [place]ram) 05/02/2024 COVID-19 Vaccine (2024- season) 2024 02/27/2021, 08/19/2020, 07/29/2020, Additional history exists Zoster Vaccines (1 of 2) 08/25/2029 Pos tponed from 10/27/2013 (Patient Refused) Colorectal Cancer Screening Colonoscopy (10 Years) 01/02/2030 01/03/2020, 10/17/2018 DTaP, Tdap and Td Vaccines (2 - Td or Tdap) 02/23/2031 02/23/2021 RSV Immunization or 60+ Years (1 - 1-dose 75+ series) 10/27/2038 Hepatitis C Completed 03/16/2019 Meningococcal B Vaccine Aged Out No l onger eligible based on patient's age to complete this topic Meningococcal Vaccine Aged Out No rachelle aditya eligible based on patient's age to complete this topic RSV Immunizations Under 20 Months Aged Out No longer eligible based on patient's age to complete this topic Procedures Procedure Name Priority Date/Time Associated Diagnosis Comments MAMMOGRAM GENERIC (SCAN ORDER) 04/30/2022 HEPATITIS C ANTIBODY Routine 03/16/2019 7:00 AM NEW GRAD RN COLONOSCOPY Routine 10/17/2018 from Last 3 Months or Most Recently Relevant to Health Maintenance Results * MAMMOGRAM GENERIC (04/30/2022) Anatomical Region Laterality Modality Other 04/30/2022 us [facility] Scanned SCANNING Final Resu lt * HEPATITIS C ANTIBODY (03/16/2019 7:00 AM NEW GRAD RN) HEPATITIS C AB NON-REACT RONNY NON-REACT RONNY [facility] SIGNAL TO CUTOFF 0.01 <1.00 [facility] Comment: HCV antibody was non-reactive. There is no laboratory evidence of HCV infection. In most cases, no further action is required. However, if recent HCV exposure is suspected, a test for HCV RNA (test code 40895) is suggested. For additional information please refer to http://education.[employer]/faq/BGK66q8 (This link is being provided for informational/ educational purposes only.) 03/16/2019 7:00 AM NEW GRAD RN 03/16/2019 7:00 AM NEW GRAD RN Narrative [facility] - 03/19/2019 12:41 PM NEW GRAD RN FASTING:YES FASTING: YES Resulting Agency Comment Performing Organization Information: Site ID: [place] Name: [facility] Address: [address] [id number] Director: Nando Sandoval D.O., MPH us Toy Knox DO LABORATORY Final Re sult [facility] * Colonoscopy (10/17/2018) us Braulio Green MD GI PROCEDURE ORDERABLES Fin al Result from Last 3 Months or Most Recently Relevant to Health Maintenance [place] [address] [facility] Care Teams Business Integration Analyst Relationship Specialty Start Date End Date Toy Knox DO [address] [place] [id number] PCP - General FAMILY PRACTICE 06/28/18
--- OUTSIDE RECORDS SUMMARY | 2025-02-01 13:34 | XMS_ITS | Encounter Summary ---
Author Organization [facility] Address [address] [place] [address] Care Team Providers Care Baker Bench Name Role Phone Toy Knox Primary Care Provider + Encounter Details Date Type Department Care Team (Late st Contact Info) Description 12/31/2019 Prep for Procedure [facility] [place], [place] [id number] Braulio Green MD [address] [id number] Social History Tobacco Use Types Packs/Day Years Used Date Smoking Tobacco: Every Day Cigarettes 1 20 Smokeless Tobacco: Never Alcohol Use Standard Drinks/Week Comments Yes 0 (1 standard drink = 0.6 oz pur e alcohol) Social PHQ-2 Answer Date Recorded PHQ-2 Score 0 01/01/2020 Comments No Sex and Gender Information Value Date Recorded Sex Assigned at Not on file Legal Sex Female 8:06 AM FOXER Gender Identity Not on file Sexual Orientation Not on file Occupation Industry Job Start Date Job End Date [employer] Not on file Not on file Not on file COVID-19 Exposure Response Date Recorded In the last month, have you been in contact with someone who was confirmed or suspected to have Coronavirus / COVID-19? No / Unsure 01/03/2020 12:21 PM CDT documented as of this encounter Plan of Treatment Not on file documented as of this encounter Results * PRE-SURGICAL/PRE-PROCEDURE CORONAVIRUS (COVID 19) (12/31/2019 10:05 AM CDT) CORONAVIRUS SARS COV 2 PCR (RESP) NOT DETECTED NOT DETECTED 01/01/2020 11:15 PM CDT [facility] Comment: A Not Detected (negative) test result for this test means that SARS- CoV-2 RNA was not present in the specimen above the limit of detection. A negative result does not rule out the possibility of COVID-19 and should not be used as the sole basis for treatment or patient management decisions. If COVID-19 is still suspected, based on exposure history together with other clinical findings, re-testing should be considered in consultation with public health authorities. Laboratory test results should always be considered in the context of clinical observations and epidemiological data in making a final diagnosis and patient management decisions. Please review the Fact Sheets and FDA authorized labeling available for health care providers and patients using the following websites: https://www.[employer]/home/Covid-19/HCP/NAAT/fact-sheet2 https://www.[employer]/home/Covid-19/Patients/NAAT/ fact-sheet2 This test has been authorized by the FDA under an Emergency Use Authorization (EUA) for use by authorized laboratories. Due to the current public health emergency, [facility] is receiving a high volume of samples from a wide variety of swabs and media for COVID-19 testing. In order to serve patients during this public health crisis, samples from appropriate clinical sources are being tested. Negative test results derived from specimens received in non-commercially manufactured viral collection and transport media, or in media and sample collection kits not yet authorized by FDA for COVID-19 testing should be cautiously evaluated and the patient potentially subjected to extra precautions such as additional clinical monitoring, including collection of an additional specimen. Methodology: Nucleic Acid Amplification Test (NAAT) includes PCR or TMA Additional information about COVID-19 can be found at the [employer] website: www.[employer]/Covid19. Test performed at [facility] [address] [place] [address] Director: NANDO RUIZ DO,MPH NASOPHARYNGEAL SWAB / Unknown 12/31/2019 10:05 AM CDT us Braulio Green MD MICROBIOLOGY - GENERAL TIFFANIE VAZQUEZ Final Result [facility] [address] [place] [address], documented in this encounter Visit Diagnoses Diagnosis AP (abdominal pain)- Primary Abdominal pain, unspecified site Hematochezia Blood in stool documented in this encounter Additional Health Concerns Infection Onset Date Last Indicated Resolved Time COVID-19 Rule Out 12/17/2019 12/31/2019 01/01/2020 1:52 PM CDT COVID-19 Rule Out 07/15/2020 07/15/2020 07/15/2020 4:22 PM CDT COVID-19 Rule Out 07/15/2020 07/15/2020 07/17/2020 5:24 AM CDT COVID-19 Rule Out 02/11/2021 02/11/2021 02/18/2021 12:34 AM CDT Assessment Noted Time PHQ-9 Depression Total Score: 3 06/28/19 19 8:40 AM FOXER documented as of this encounter Care Teams Baker Bench Relationship Specialty Start Date End Date Toy Knox DO [address] [place] [id number] PCP - General FAMILY PRACTICE 06/28/18 documented as of this encounter
--- OUTSIDE RECORDS SUMMARY | 2025-02-01 13:34 | XMS_ITS | Encounter Summary ---
Author Organization [facility] Care Team Providers Care Tankage Grinder Name Role Phone Howard Duval MD Primary Care Provider [phone] Tamy Turner Primary Care Provider [phone] Toy Knox DO Primary Care Provide r Lula Reyes Primary Care Provider [phone] Encounter Details Date Type Department Care Team (Latest Contact Info) Description 06/28/2016 Orders Only [facility]INCON[facility] Provider, MD Alexis [address] [place] [id number] Social History Tobacco Use Types Packs/Day Years Used Date Smoking Tobacco: Never Assessed Comments Unknown Sex and Gender Information Value Date Recorded Sex Assigned at Not on file Legal Sex Female 10:10 PM 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 us Historical Provider Final Res ult documented in this encounter Visit Diagnoses Not on filedocumented in this encounter Care Teams Tankage Grinder Relationship Specialty Start Date End Date Howard Duavl MD PCP - General Family Medicine 07/22/18 08/21/18 Tamy Turner PA [address] [place] [address] PCP - General Internal Medicine 08/22/18 11/12/18 Toy [place] DO [address] [place], [place] [id number] PCP - General 11/13/18 01/31/24 Lula Reyes PA [address] [place] [id number] PCP - General Physician Edger Feeder 02/01/24 documented as of this encounter
--- OUTSIDE RECORDS SUMMARY | 2025-02-01 13:34 | XMS_ITS | Clinical Summary ---
Author Organization [facility] Address [address] [place] [address] Care Team Providers Care International Trade Teacher Name Role Phone Toy [place] DO Primary Care Provider + Source Comments [facility],non-owned Affiliates and Associated Physician Practices is amultiple site organization consisting of ambulatory clinics and hospital sitesin [place], [place], [place] and [place]. This disclosure is being madepursuant to the Care Everywhere program and may not contain all information available regarding this patient. Last updated 18.[facility] Allergies No known active allergies Medications * Be aware that medications may not be up to date on this document. Alwaysverify current medications with the patient. SYNTHROID 175 MCG tablet Take 1 (one) tablet by mouth every morning 1 Active carBAMazepine ER 12hr (CARBATROL) 200 MG capsule Take 2 (two) capsules by mouth at bedtime 0 Active albuterol HFA (PROVENTIL;VENT NADIYA;PROAIR) 108 (90 Base) MCG/ACT inhaler INHALE TWO (2) PUFFS BY MOUTH UP TO EVERY 4 OR 6 HOURS NEEDED FOR SHORTNESS OF BREATH 1 Active calcipotriene (DOVONEX) 0.005 % creamIndication s:Other psoriasis Apply to affected area, twice daily. 60 g 2 1 Active fluticasone propionate (Flonase) 50 MCG/ACT nasal spray fluticasone propionate 50 mcg/actuation nasal spray,suspension 2 Active Active Problems Problem Noted Date Diagnosed Date Other psoriasis 02/20/2021 Allergic contact dermatitis due to metals 2020 Onychomycosis 02/20/2021 Urge incontinence 12/13/2014 Family History Medical History Relation Name Comments None Known Brother None Known Father None Known Maternal Aunt None Known Maternal Grandfather None Known Maternal Grandmother None Known Maternal Uncle Cancer - Breast Mother Cancer - Breast Other None Known Paternal Aunt None Known Paternal Grandfather None Known Paternal Grandmother None Known Paternal Uncle None Known Sister Asthma Neg Hx CVA Neg Hx Cancer - Other Neg Hx Cancer - Skin, Melanoma Neg Hx Cancer - Skin, Non Melanoma Neg Hx Eczema Neg Hx Hemophilia Neg Hx Psoriasis Neg Hx Relation Name Status Comments Brother Father Maternal Aunt Maternal Grandfather Maternal Grandmother Maternal Uncle Mother Other Paternal Aunt Paternal Grandfather Paternal Grandmother Paternal Uncle Sister Social History Tobacco Use Types Packs/Day Years Used Date Smoking Tobacco: Every Day Cigarettes Smokeless Tobacco: Never Alcohol Use Standard Drinks/Week Comments Yes 0 (1 standard drink = 0.6 oz pur e alcohol) socially Comments Unknown Sex and Gender Information Value Date Recorded Sex Assigned at Not on file 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 Gender Identity Not on file Sexual Orientation Not on file Last Filed Vital Signs Vital Sign Reading Time Taken Comments Blood Pressure 130/80 12/20/2014 12:50 PM CDT Pulse - - Temperature - - Respiratory Rate - - Oxygen Saturation - - Inhaled Oxygen Concentration - - Weight 112.9 kg (249 lb) 12/20/2014 12:50 PM CDT Height 172.7 cm (5' 8) 12/20/2014 12:50 PM CDT Body Mass Index 37.86 12/20/2014 12:50 PM CDT Plan of Treatment Health Maintenance Due Date Last Done Comments COLOGUARD (AGES 45-75) - COL ON CA SCREENING 1965 COLON MONITORING 1965 COLONOSCOPY - COLON CA SCREENING 1963 CT COLONOGRAPHY - COLON CA SCREENING 1965 Colorectal Cancer Screening 1965 FIT - COLON CA SCREENING 1965 FLEX SIG - COLON CA SCREENING 1965 LIPID TESTING 1965 MAMMOGRAM 1965 HIV SCREENING 10/27/1978 HEPATITIS C SCREENING 10/23/1981 DTAP/TDAP/TD VACCINES (1 - Tdap) 10/27/1982 PNEUMOCOCCAL VACCINE 50+ (1 of 2 - PCV) 10/27/1982 PAP SMEAR 10/27/1984 ZOSTER VACCINE (1 of 2) 10/27/2013 DEPRESSION SCREENING 05/02/2024 COVID-19 VACCINE (2 - 2024-2 6 season) 2024 02/27/2021 INFLUENZA VACCINE (#1) 2024 02/24/2022 Respiratory Syncytial Virus (RSV) Vaccine Pt: or over 60 yrs (1 - 1-dose 75+ series) 10/27/2038 HEPATITIS B VACCINE Aged Out No longe r eligible based on patient's age to complete this topic HIB VACCINE Aged Out No longer eligi ble based on patient's age to complete this topic HPV VACCINE Aged Out No longer eligi ble based on patient's age to complete this topic MENINGOCOCCAL (Group B) VACC INE SHARED DECISION-MAKING Aged Out No longer eligibl e based on patient's age to complete this topic MENINGOCOCCAL GROUPS A/C/Y/W VACCINE Aged Out No longer eligible b ased on patient's age to complete this topic Insurance [facility] Care Teams International Trade Teacher Relationship Specialty Start Date End Date Toy Knox DO [address] [place] [id number] PCP - General 01/02/21
--- OUTSIDE RECORDS SUMMARY | 2025-02-01 13:34 | XMS_ITS | Clinical Summary ---
Author Organization [facility] [address] [facility] Address [address] [place] [address] Care Team Providers Care Rag Room Supervisor Name Role Phone Lula Reyes Primary Care Provider Allergies No known active allergies Medications albuterol HFA (PROVENTIL HFA,VENTOLIN HFA,PROAIR HFA) 90 mcg/actuation inhaler INHALE 2 PUFFS BY MOUTH UP TO EVERY 4-6 HOURS NEEDED FOR SHORTNESS OF BREATH. Patient must be seen for further refills. Virtual Visits now available 12/26/19 20 Active carBAMazepine ER (CARBATROL) 200 mg 12 hr capsule Take 1 capsule (200 mg total) by mouth daily 06/20/19 19 Active cephalexin (KEFLEX) 500 mg capsule 01/07/20 20 Active levothyroxine (SYNTHROID) 75 mcg tablet 12/24/19 20 Active mesalamine (APRISO) 0.375 gram 24 hr capsule 12/24/19 20 Active calcipotriene (DOVONOX) 0.005 % cream Apply topically 2 (two) times a day 02/21/20 21 Active fluticasone propionate (FLONASE) 50 mcg/actuation nasal spray 07/24/19 22 Active Anoro Ellipta 62.5-25 mcg/actuation blister with device 10/10/19 22 Active umeclidinium-vilan teroL (Anoro Ellipta) 62.5-25 mcg/actuation blister with device Inhale 1 puff daily 08/26/19 22 Active Synthroid 175 mcg tablet 12/08/19 22 Active albuterol 2.5 mg /3 mL (0.083 %) nebulizer solution TAKE 1 VIAL BY NEBULIZATION EVERY 6 HOURS NEEDED FOR WHEEZING 01/06/[address] (VOLTAREN) 75 mg EC tabletIndications: Primary osteoarthritis of left hip Take 1 tablet (75 mg total) by mouth 2 (two) times a day 60 tablet 1 01/17/20 25 025 Active Active Problems No known active problems Encounters Date Type Department Care Team Description 01/16/2025 10:30 AM CDT Office Visit [facility] [address] [place] [phone] Keven Quinones MD Primary osteoarthritis of left hip (Primary Dx) 12/25/2024 Telephone [facility] [address] [place] [phone] Keven Quinones MD 12/24/2024 Telephone [facility] [address] [place] [phone] Keven Quinones MD 11/21/2024 10:45 AM CDT Office Visit [facility] [address] [place] [phone] Keven Quinones MD Primary osteoarthritis of left hip (Primary Dx) from Last 3 Months Surgical History Surgery Date Site/Laterality Comments NASAL SEPTUM SURGERY CHOLECYSTECTOMY CYST REMOVAL Family History Medical History Relation Name Comments Breast cancer Mother's Sister Relation Name Status Comments Mother's Sister Other AT AGE 29 Social History Tobacco Use Types Packs/Day Years Used Date Smoking Tobacco: Every Day Alcohol Use Standard Drinks/Week Comments Yes 0 (1 standard drink = 0.6 oz pur e alcohol) Comments No Sex and Gender Information Value Date Recorded Sex Assigned at Not on file 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 Gender Identity Not on file Sexual Orientation Not on file Obstetrics History Para Term AB IAB SAB Ectopic Multiple Livin g Live Births 0 0 0 0 0 0 0 0 0 0 0 Last Filed Vital Signs Vital Sign Reading Time Taken Comments Blood Pressure 132/80 01/31/2024 10:28 AM CDT Pulse 72 07/24/2020 5:04 PM CDT Temperature 36.4 C (97.5 F) 07/24/2020 5:04 PM CDT Respiratory Rate - - Oxygen Saturation 89% 07/24/2020 5:04 PM CDT Inhaled Oxygen Concentration - - Weight 110.2 kg (243 lb) 01/16/2025 10:44 AM CDT Height 167.6 cm (5' 6) 01/16/2025 10:44 AM CDT Body Mass Index 39.22 01/16/2025 10:44 AM CDT Plan of Treatment Health Maintenance Due Date Last Done Comments Breast Cancer Screening-Mammogram 1965 Colon Cancer Screening-Colonoscopy 1963 Depression Screening 1965 Hepatitis C Screening 1965 Hepatitis B Screening 10/27/1981 Pneumococcal vaccine <65 (1 of 2 - PCV) 10/27/1982 Zoster Vaccine (1 of 2) 10/27/2013 Cervical Cancer Screening 01/10/2021 01/11/2020, Covid-19 Vaccine ( - 2024-2 6 season) 2024 02/27/2021, 08/19/2020, 07/29/2020, Additional history exists Influenza Vaccine (#1) 2024 , 01/30/2018, 01/23/2016 Regular Well Visit/Exam 18-64 01/30/2025, 01/28/2023, 12/08/2021, Additional history exists DTaP/Tdap/Td Vaccine (3 - Td or Tdap) 02/23/2031 02/23/2021, 06/20/2017 Procedures Procedure Name Priority Date/Time Associated Diagnosis Comments DC ARTHROCENTESIS ASPIR&/INJ MAJOR JT/BURSA W/O US Routine 11/21/2024 10:45 AM CDT Primary osteoarthritis of left hip THINPREP PAP WITH HPV Routine 01/11/2020 3:01 PM CDT Women's annual routine gynecological examination from Last 3 Months or Most Recently Relevant to Health Maintenance Results * DC ARTHROCENTESIS ASPIR&/INJ MAJOR JT/BURSA W/O US (11/21/2024 10:45 AM CDT) Keven Stanford MD - 11/21/2024 10:45 AM CDT Keven Quinones MD 11/24/2024 10:50 AM Large Joint (Hip, Knee, Shoulder) Injection: L greater trochanteric bursa Performed by: Keven Quinones MD Authorized by: Keven Quinones MD Procedure Details: Location: Hip Site: L greater trochanteric bursa Medications: 1 mL lidocaine 10 mg/mL (1 %); 40 mg methylPREDNISolone acetate 40 mg/mL Keven Quinones MD IN CLINIC/BEDSIDE TIFFANIE VAZQUEZ Final Result * ThinPrep Pap with HPV (01/11/2020 3:01 PM CDT) 01/11/2020 3:01 PM CDT 01/14/2020 1:37 PM CDT Isabela [facility] - 01/17/2020 3:06 PM CDT [facility] Department of Pathology [address] [place] [address] Final Report with Addendum Patient Name: CATRINA ZAIDI Address: [address] [place] [address] Gender: F : 1965 (Age: 54) Service: Laboratory Location: Lab [facility] #: [id number] Patient Type: Ref Lab Taken: 01/11/2020 Received: 01/14/2020 Accessioned:: 01/15/2020 Reported: 01/17/2020 Physician(s): Dr. Luca [place] M.D. [facility] Diagnosis: Source of Specimen: Screening ThinPrep Imaged Pap w/HPV Specimen Adequacy: - Specimen satisfactory for interpretation; endocervical/transformation zone component absent or insufficient General Category: - Negative for intraepithelial lesion or malignancy MU Goodwin(ASCP) MU Nowak(ASCP) Report Electronically Reviewed and Signed Out By MARTY NowakASCP) 01/17/2020 15:06:11 Addenda: HPV RNA Test Interpretation NEGATIVE for types 16, 18, 31, 33, 35, 39, 45, 51, 52, 56, 58, 59, 66 and 68. Test performed utilizing Gen-Probe Aptima assay. MU Nowak(ASCP) Report Electronically Reviewed and Signed Out By MARTY NowakASC) 01/16/2020 09:21:14 Specimen(s) Received: A: Screening ThinPrep Imaged Pap w/HPV Clinical History: Menstrual History: Post-menopausal The Pap test is a screening test used to aid in the detection of cervical cancer and its precursors. It should not be the sole means by which malignant and premalignant lesions are diagnosed. Both false negative and false positive results may occur. It also has poor sensitivity for the detection of endometrial lesions and should not be used to evaluate suspected endometrial abnormalities. For these reasons it is most important to obtain Pap tests at regular intervals. The performance characteristics of some immunohistochemical stains, fluorescence in-situ hybridization tests and immunophenotyping by flow cytometry cited in this report (if any) were determined by the Surgical Pathology Department at [facility] as part of an ongoing design quality engineer program and in compliance with federally mandated regulations drawn from the Clinical Laboratory Improvement Act of 1988 (CLIA '88). Some of these tests rely on the use of analyte specific reagents and are subject to specific labeling requirements by the US Food and Drug Administration. Such diagnostic tests may only be performed in a facility that is certified by the Department of Health and Human Services as a high complexity laboratory under CLIA '88. The FDA has determined that such clearance or approval is not necessary. This test is used for clinical purposes. It should not be regarded as investigational or for research. Nevertheless, federal rules concerning the medical use of analyte specific reagents require that the following disclaimer be attached to the report: This test was developed and its performance characteristics determined by the Surgical Pathology Department [facility]. It has not been cleared or approved by the U. S. Food and Drug Administration. Luca [place] MD LAB CYTOLOGY ORDERABLES Fi nal Result [address] [address], [facility] [phone] from Last 3 Months or Most Recently Relevant to Health Maintenance Insurance [facility] Care Teams Rag Room Supervisor Relationship Specialty Start Date End Date Lula Reyes PA [address] [place] [phone] PCP - General Physician Platform Mill Supervisor 02/01/24
--- NOTE | 2025-02-01 14:00 | ECHO_ITS ---
Patient Info Name: Carmelita Zaidi Age: 59 years : 1965 Gender: Female Ht: 66 in Wt: 247 lbs BSA: 2.34 m2 HR: 67 bpm BP: 152 / 100 mmHg Heart Rhythm: Sinus Rhythm Technical Quality: Fair Exam Date: 02/01/2025 2:12 PM Patient Status: O Admit Date: 02/01/2025 Exam Type: CA echo doppler color flow Complete two-dimensional, color flow and Doppler transthoracic echocardiogram is performed. Industrial Engineering Technologist: Viri Saldivar Attending Provider: Lula Reyes Summary 1. Complete two-dimensional, color flow and Doppler transthoracic echocardiogram is performed. 2. Left ventricular chamber dimension is normal. 3. Left ventricular systolic function is normal, estimated at 60-65. 4. The left ventricular diastolic function is grade I diastolic dysfunction. 5. E/e' 13 is mildly elevated. 6. Left atrial chamber dimension is mildly enlarged. 7. No pulmonary hypertension, estimated pulmonary arterial systolic pressure is 17 mmHg. Left Ventricle E/e' 13 is mildly elevated. Left ventricular chamber dimension is normal. Left ventricular systolic function is normal, estimated at 60-65. The left ventricular diastolic function is grade I diastolic dysfunction. Right Ventricle Right ventricular chamber dimension is normal. Right ventricular systolic function is normal and with normal TAPSE 2.2 cm. Left Atria Left atrial chamber dimension is mildly enlarged. Right Atria Right atrial chamber dimension is normal. Aortic Valve The aortic valve is trileaflet. There is no aortic valve stenosis. There is no aortic valve regurgitation. Pulmonic Valve There is no pulmonic regurgitation. Mitral Valve There is no mitral valve stenosis. There is no mitral valve regurgitation. Tricuspid Valve There is no tricuspid valve regurgitation. No pulmonary hypertension, estimated pulmonary arterial systolic pressure is 17 mmHg. Pericardium/Pleural There is no pericardial effusion. Inferior Vena Cava Normal inferior vena cava with >50% collapse upon inspiration consistent with normal right atrial pressure, 5 mmHg. Aorta The aortic root size at the sinus of Valsalva is normal. Left Ventricular Outflow Tract Name Value Normal LVOT 2D LVOT Diameter 2.0 cm LVOT Doppler LVOT Peak Velocity 113 cm/s LVOT Peak Gradient 5 mmHg LVOT Mean Gradient 3 mmHg LVOT VTI 23 cm LVOT VTI/AV VTI Ratio 0.6 LVOT Stroke Volume 72 ml LVOT CO 4.6 l/min LVOT CI 2.0 l/min/m2 Pulmonic Valve Name Value Normal RVOT Doppler RVOT Peak Velocity 113 cm/s RVOT Peak Gradient 5 mmHg PV Doppler PV Peak Velocity 117 cm/s PV Peak Gradient 6 mmHg Mitral Valve Name Value Normal MV Diastolic Function MV E Peak Velocity 99 cm/s MV A Peak Velocity 112 cm/s MV E/A 0.9 MV Decel Time (PW) 269 ms MV Annular TDI MV E/e' (Septal) 15.8 MV E/e' (Lateral) 11.4 MV E/e' (Average) 13.6 Tricuspid Valve Name Value Normal TV Regurgitation Doppler TR Peak Velocity 174 cm/s TR Peak Gradient 12 mmHg Estimated PAP/RSVP RA Pressure 5 mmHg <=5 PA Systolic Pressure 17 mmHg <36 RV Systolic Pressure 17 mmHg <36 TV Annular TDI TV Lateral Krista s' Velocity 14.4 cm/s >=9.5 Aorta Name Value Normal Ascending Aorta Ao Root Diameter (MM) 3.3 cm Ao Root Diam Index (MM) 1.4 cm/m2 Aortic Valve Name Value Normal AV Doppler AV Peak Velocity 189 cm/s AV Peak Gradient 14 mmHg AV Mean Gradient 7 mmHg AV VTI 36 cm AV Area (Cont Eq VTI) 2.0 cm2 >=3.0 AV Area (Cont Eq Mihcel) 1.9 cm2 AV DI (Michel) 0.60 AV Regurgitation 2D LVOT Area 3.2 cm2 Ventricles Name Value Normal LV Dimensions 2D/MM IVS Diastolic Thickness (2D) 1.0 cm 0.6-1.0 LVID Diastole (2D) 5.5 cm 3.8-5.2 LVIW Diastolic Thickness (2D) 1.0 cm 0.6-0.9 LVID Systole (2D) 3.0 cm 2.2-3.5 LVOT Diameter 2.0 cm LV Mass (2D Cubed) 209.66 g 67.00-162.00 LV Mass Index (2D Cubed) 90 g/m2 43-95 Relative Wall Thickness (2D) 0.35 <=0.42 LV Fractional Shortening/Ejection Fraction 2D/MM LV Fractional Shortening (2D) 45 % 27-45 LV EF (2D Teichholz) 75 % LV Diastolic Volume (4C MOD) 87 ml LV EF (4C MOD) 68 % LV Diastolic Volume (2C MOD) 82 ml LV EF (2C MOD) 77 % LV Diastolic Volume (BP MOD) 85 ml 46-106 LV Diastolic Volume Index (BP MOD) 37 ml/m2 29-61 LV Systolic Volume (BP MOD) 24 ml 14-42 LV Systolic Volume Index (BP MOD) 10 ml/m2 8-24 LV EF (BP MOD) 72 % 54-74 LV Diastolic Length (4C) 8.2 cm LV Systolic Length (4C) 7.3 cm LV Stroke Volume (4C MOD) 59 ml Atria Name Value Normal LA Dimensions LA Dimension (MM) 4.0 cm 2.7-3.8 LA Volume (4C A-L) 62 ml LA Volume (BP A-L) 68 ml RA Dimensions RA Area (4C) 17.1 cm2 <=18.0 Report Signatures
== END 2025-02-01 13:31 | disposition home or self-care (01) ==
PROVIDERS: PCP Physician Assistant; Visit Provider Physician Assistant
DX: R06.09 Other forms of dyspnea (principal)
CPT/HCPCS: 93306

== ENCOUNTER 2025-02-11 15:28 | Emergency (ER) | payer BC, SELFPAY ==
--- NOTE | ~2025-02-11 | XR_ITS ---
EXAMINATION: XR chest 2V, 02/11/2025 15:50 CDT HISTORY: COUGH 2 WKS COMPARISON: No comparisons available. Technique: 2 views obtained. Findings: The lungs are clear, no effusion. No pneumothorax. Heart is normal size. Mediastinal and hilar contours are within normal limits. Bony thorax no acute abnormality. Impression: No acute cardiopulmonary abnormality. Reviewed, dictated and finalized at location P. Impression: No acute cardiopulmonary abnormality.
--- NOTE | 2025-02-11 15:37 | ED.URI ---
HPI - URI/Sore Throat General Chief Complaint: Upper Respiratory Infection Stated Complaint: Cough Time Seen by Provider: 02/11/25 15:30 Source: patient Mode of arrival: ambulatory Limitations: no limitations History of Present Illness HPI Narrative: Patient is a 59-year-old female who presents with cough, signs pain and pressure for 2 weeks. Patient has been taking Sudafed during the day and NyQuil at night. Patient states symptoms have worsened over the last 2 nights where she can no longer lay flat and sleep without having coughing fits. Denies any fever, chills, nausea, vomiting, diarrhea. Related Data Home Medications ?Medication ?Instructions ?Recorded ?Confirmed ?Last Taken ?Type fluticasone propionate 50 2 spray intranasal DAILY 10/21/23 09/25/24 Unknown History mcg/actuation nasal spray,suspension cholecalciferol (vitamin D3) 10 10 mcg PO DAILY 10/31/24 Unknown History mcg (400 unit) capsule atorvastatin 20 mg tablet mg 02/11/25 Unknown History diclofenac sodium 75 mg mg PO 02/11/25 Unknown History tablet,delayed release tiotropium 2.5 mcg-olodaterol 2.5 inhalation 02/11/25 Unknown History mcg/actuation mist for inhalation (Stiolto Respimat) Allergies Allergy/AdvReac Type Severity Reaction Status Date / Time No Known Allergies Allergy Verified 02/11/25 16:03 Review of Systems Review of Systems: All systems reviewed & are unremarkable except as noted in HPI and below Constitutional: Constitutional: Denies chills, Denies fatigue, Denies fever(s), Denies headache(s), Denies malaise and Denies weakness Eyes: Eyes: Denies blurry vision, Denies itchy eyes and Denies loss of vision ENT: Denies otalgia, Denies headache(s), Reports nasal congestion, Reports sinus pain, Reports sinus pressure and Denies sore throat Cardiovascular: Cardiovascular: Denies chest pain, Denies irregular heart rhythm and Denies dyspnea Respiratory: Respiratory: Reports cough and Denies dyspnea Gastrointestinal: Gastrointestinal: Denies abdominal pain, Denies diarrhea, Denies nausea and Denies vomiting Musculoskeletal: Musculoskeletal: Denies back pain, Denies myalgias and Denies arthralgias Integumentary/Breasts: Skin/Breast: Denies pruritus and Denies rash Neurologic: Denies headache(s), Denies loss of vision and Denies weakness Psychiatric: Psychiatric: Reports no additional psychiatric complaints Endocrine: Endocrine: Denies fatigue Allergic/Immunologic: Allergic/Immunologic: Denies itchy eyes PMFSH Past Medical History Medical History Seizure Cancer Social History Social History Smoking packs per day: 1 Smoking cigarettes per day: 20.0 Smoking status: Current every day smoker Tobacco type: cigarettes Alcohol intake: current Alcohol use details: Socially Substance use: never Substance use type: does not use Do You Feel Safe in your Home?: Yes Lack of Transportation: No Lack of Food: Never True Current Housing: I Have Housing Concerned About Future Housing: No Difficulty Paying Gas/Electric Bills: No Difficulty Paying for Meds: No Currently Unemployed: No Education: High School Diploma/GED Difficulty w/ Childcare or Family Care: No Living arrangements: with family Additional living arrangements comments: -[place] Occupation/Education: retired Additional occupation/education comments: [employer] Gender identity (if verbalized by the patient): Female Sexual Orientation (if Verbalized by the Patient): Straight or Heterosexual Spiritual care concerns: No Comments At time of signature, agree with nursing past medical, surgical, social and family history. There is no relevant family history pertinent to the presenting complaint. Exam Const: General: cooperative, healthy appearing, comfortable, no acute distress and well nourished Nutritional Appearance: well nourished Orientation/consciousness: patient oriented x3 Limitations: no limitations HENMT: Head: normal to inspection, normocephalic and atraumatic Ears: hearing grossly normal bilaterally, external ears normal, TM's normal bilaterally, EAC's normal and no periauricular adenopathy Face/Nose/Sinus: Normal external nose present, Abnormal mucous membranes and turbinates present erythematous bilateral and diffuse, normal facial exam, sinuses nontender and face symmetric Face and sinus: normal facial exam, sinuses nontender and face symmetric Mouth: Yes Normal oral and palatal mucosa present, Yes lip normal, Yes tongue normal, Yes Normal salivary glands and ducts present, Yes oropharynx normal and Yes moist mucous membranes Teeth and gingiva: dentition normal Throat: posterior oropharynx normal, tonsils normal and uvula midline Eyes: General: appearance normal, both eyes and all related structures Alignment and Position: alignment normal and position normal Periorbital: periorbital findings normal Eyelids: eyelids normal Pupils: Equal, round and reactive pupils present Neck: Neck: normal visual inspection, full ROM, no lymphadenopathy and supple Chest: Chest palpation & inspection: normal inspection of the chest and normal palpation of entire chest wall Resp: Effort & Inspection: normal respiratory effort and able to speak in complete sentences Auscultation: no crackles, no rales, rhonchi left upper and right upper and no wheezes Cardio: Rate: regular rate Rhythm: regular rhythm Heart sounds: S1 normal heart sound present and S2 normal heart sound present GI: Inspection: normal to inspection Skin: General skin exam: normal color and no rashes or lesions noted Neuro: General: patient oriented x3 and moves all extremities Cranial nerves: Yes Equal, round and reactive pupils present Speech: normal speech Gait exam (Neuro): Normal gait present Extrem: General: normal to inspection, full ROM and no edema Psych: Appearance: grossly normal and well kempt Mental Status: mental status grossly normal Speech and movement: Normal speech and movement present Affect: normal affect Attitude: cooperative Thought process: Normal thought process present Course Course Emergency Course: Discharge instructions reviewed with patient, as well as provided in writing per nursing staff. The instructions also include specific and strict return/GO TO THE ER as well as f/u information. All questions have been answered, and the patient deny any further questions with discharge and discharge plan. Portions of this record may have been created with voice recognition software Level of Care: Express Care Visit Vital Signs Vital signs: Reviewed MDM - URI/Sore Throat MDM Narrative Medical decision making narrative: Symptoms and exam consistent with bacterial bronchitis. Will treat with antibiotic, steroids and albuterol inhaler. Pt well hydrated appearing, in no respiratory distress, hemodynamically stable. Recommend supportive care. The patient is stable at time of discharge the clinical impression was discussed and the patient was given the opportunity to ask questions, which were addressed as completely as possible given the information available at present. Anticipatory guidance and return to care precautions were discussed and the importance of primary care follow-up was stressed and encouraged. The patient voiced understanding of the plan, indications to return, and the need for follow-up. Exam findings show no acute concerns or changes Patient is appropriate for outpatient treatment and follow-up. Differential diagnosis considered: Klein virus, strep pharyngitis, allergic rhinitis, upper respiratory tract infection, sinusitis, rhinosinusitis, nasopharyngitis. viral pharyngitis, otitis media, otitis externa, otitis effusion, foreign body, cerumen impaction, viral syndrome, and influenza.? Medical Records Attestation: I reviewed the patient's medical records. Imaging Data Radiologist's impression: EXAMINATION: XR chest 2V, 02/11/2025 15:50 CDT HISTORY: COUGH 2 WKS COMPARISON: No comparisons available. Technique: 2 views obtained. Findings: The lungs are clear, no effusion. No pneumothorax. Heart is normal size. Mediastinal and hilar contours are within normal limits. Bony thorax no acute abnormality. Impression: No acute cardiopulmonary abnormality. Reviewed, dictated and finalized at location P. Discharge Plan Discharge Clinical Impression: Acute purulent bronchitis Patient Disposition: Home Condition: Stable Instructions: Acute Bronchitis (ED) Additional Instructions: Take antibiotic as prescribed. Take steroids in the morning with food. Use Tessalon Perles as needed for cough. Use inhaler with spacer as needed. Other symptomatic treatments include: -Alternate Tylenol and Motrin per package directions for fever or pain: Tylenol 650-1000mg by mouth every 4-6 hours. Do not exceed 4000mg in 24 hours. Advil (Ibuprofen) 600 mg by mouth every 6 hours. Do not exceed 2400mg in 24 hours. 8 AM: Tylenol 11 AM: Ibuprofen 2 PM: Tylenol 5 PM: Ibuprofen 8 PM: Tylenol 11 PM: Ibuprofen 2 AM: Tylenol 5 AM: Ibuprofen -Antihistamine medication such as Benadryl at night and Zyrtec/Claritin/Mary during the day can help improve symptoms. -Use Flonase twice a day for 5 days then daily to help reduce the inflammation and dry up your sinuses. -You can also use Sudafed or Mucinex. Be sure to drink plenty of water with these medications at least 8 ounces with every dose and it is important to drink 8 to 10 glasses of water per day. Water is a natural decongestant -Eat and drink things that are easy to swallow, like tea or soup, or popsicles. -Oral rinses such as: Salt water gargles and/or may use topical anesthetic (eg. Chloraseptic spray) or lozenges to relieve dryness or throat pain). -Frequent hand washing or hand access consultant is one of the best ways to prevent spread of infection. -Using a vaporizer or humidifier at night will also help thin secretions and help with coughing up phlegm. Call your Primary Care Doctor and make a follow-up appointment in 3 days. If your cough worsens, you develop a fever greater than 103, you develop shaking chills, a fast heartbeat, trouble breathing and/or feel you are are breathing much faster than usual, call your Primary Care Doctor or go to the ER. Patient Language: Malawian Prescriptions: New prednisone 20 mg tablet 40 mg PO DAILY 5 Days Qty: 10 0RF doxycycline monohydrate 100 mg tablet 100 mg PO BID 5 Days Qty: 10 0RF benzonatate 100 mg capsule 100 mg PO BID PRN (Reason: cough) Qty: 14 0RF fluticasone propionate [Flonase Allergy Relief] 50 mcg/actuation spray,suspension 1 spray intranasal DAILY Qty: 16 0RF Rx Instructions: administer into each nostril No Action albuterol sulfate 90 mcg/actuation HFA aerosol inhaler 2 puff INHALATION QID PRN (Reason: shortness of breath or wheezing) Qty: 8.5 0RF atorvastatin 20 mg tablet diclofenac sodium 75 mg tablet,delayed release (DR/EC) PO Stiolto Respimat 2.5-2.5 mcg/actuation mist INHALATION fluticasone propionate 50 mcg/actuation spray,suspension 2 spray INTRANASAL DAILY cholecalciferol (vitamin D3) 10 mcg (400 unit) capsule 10 mcg PO DAILY carbamazepine 200 mg capsule, ER multiphase 12 hr See Rx Instructions .ROUTE .COMPLEX Qty: 180 4RF Dose Instruction: TAKE 2 CAPSULE BY MOUTH EVERY NIGHT AT BEDTIME Rx Instructions: TAKE 2 CAPSULE BY MOUTH EVERY NIGHT AT BEDTIME levothyroxine [Synthroid] 175 mcg tablet See Rx Instructions PO .COMPLEX 90 Days Qty: 124 3RF Dose Instruction: TAKE 1 TABLET BY MOUTH DAILY Rx Instructions: TAKE 1 TABLET BY MOUTH 9 pills a week, one pill from Tuesday to Tuesday, 2 on saturdays and 2 pills on Sundays. Follow-up/Referrals: Eric,SANIA Cotton [Primary Care Provider, Unknown] - 3 Days Time of Disposition: 16:31
[2025-02-11 15:41] VITALS: BP 159/86; PULSE 69; RESP 16; TEMP 36.7; O2SAT 94
== END 2025-02-11 16:35 | disposition home or self-care (01) ==
PROVIDERS: Emergency Provider Nurse Practitioner Family; PCP Physician Assistant
DX: J20.9 Acute bronchitis, unspecified (principal); F17.210 Nicotine dependence, cigarettes, uncomplicated; Z85.9 Personal history of malignant neoplasm, unspecified
CPT/HCPCS: 71046; 99213; G0463

== ENCOUNTER 2025-03-18 09:53 | Outpatient (CLI) | payer BC, SELFPAY ==
--- NOTE | ~2025-03-18 | US_ITS ---
EXAMINATION: US thyroid DATE: 03/18/2025 10:11 INDICATION: Hypothyroidism TECHNIQUE: Multiple ultrasound images of the thyroid were obtained. COMPARISON: April 16, 2015 FINDINGS: The right thyroid lobe measures 3.6 x 1.2 x 1.1 cm. The left thyroid lobe measures 3.5 x 1.5 x 1.1 cm. In the superior pole the left lobe is a 1.1 x 0.6 x 0.7 cm T4 nodule. Isthmus: 2 mm The thyroid is heterogeneous in echotexture throughout. IMPRESSION: 1. 1.1 cm T4 nodule in the superior pole of the left lobe of the thyroid. 2. The thyroid remains heterogeneous in echotexture. 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
== END 2025-03-18 09:54 | disposition home or self-care (01) ==
LOC: MICIMG 09:54
PROVIDERS: PCP Physician Assistant; Visit Provider Physician Assistant
DX: E03.9 Hypothyroidism, unspecified (principal)
CPT/HCPCS: 76536